=== PATIENT | male | born 1995 | race Two or more races ===

== ENCOUNTER 2017-10-05 02:38 | Emergency (ER) | payer OTHER ==
[~2017-10-05] VITALS: Ht 175.3 cm; Wt 72.6 kg
[~2017-10-05 02:38] MED LIST: CEPH500 PO; CODACE30 PO; CODACEE120; CODACEE120 PO; IBUP600 PO; ONDA4ODT MM
== END 2017-10-05 04:06 ==
LOC: ER 02:38
DX: S21.112A Laceration without foreign body of left front wall of thorax without penetration into thoracic cavity, initial encounter (principal); W25.XXXA Contact with sharp glass, initial encounter
CPT/HCPCS: 12002; 71045; 99283